=== PATIENT | female | born 1985 | race Caucasian/White ===

== ENCOUNTER 2016-09-19 05:17 | Emergency (ER) | payer BC ==
[~2016-09-19 05:17] MED LIST: BUSPAR5 M1 PO; EC-NAPROSYN500 MG; IMITREX PO; LORTAB 7.5-3251 EACH PO; NAPROSYN250 M1 PO; NO MEDICATIONS; PERCOCET5/325 PO; PRILOSEC20 MG PO; PROTONIX PO; ZOFRAN ODT4 MG PO; ZOFRAN PO
== END 2016-09-19 05:20 | disposition home or self-care (01) ==
LOC: SED 05:17
DX: J06.9 Acute upper respiratory infection, unspecified (principal); Z88.8 Allergy status to other drugs, medicaments and biological substances
CPT/HCPCS: 99282

== ENCOUNTER 2016-11-27 22:08 | Emergency (ER) | payer OTHER ==
[2016-11-27] MEDS ORDERED: IMITREX50 MG PO (22:14)
== END 2016-11-27 23:35 | disposition home or self-care (01) ==
LOC: SED 22:08
DX: J06.9 Acute upper respiratory infection, unspecified (principal); G43.909 Migraine, unspecified, not intractable, without status migrainosus; Z90.49 Acquired absence of other specified parts of digestive tract; Z88.8 Allergy status to other drugs, medicaments and biological substances; Z79.899 Other long term (current) drug therapy
CPT/HCPCS: 99282

== ENCOUNTER 2017-01-26 01:23 | Emergency (ER) | payer OTHER ==
[~2017-01-26 01:23] MED LIST changes: +IMITREX50 MG PO
== END 2017-01-26 02:03 | disposition home or self-care (01) ==
LOC: SED 01:23
DX: T21.11XA Burn of first degree of chest wall, initial encounter (principal); T21.14XA Burn of first degree of lower back, initial encounter; T31.0 Burns involving less than 10% of body surface; Z90.49 Acquired absence of other specified parts of digestive tract; Z90.89 Acquired absence of other organs; Z88.8 Allergy status to other drugs, medicaments and biological substances; X08.8XXD Exposure to other specified smoke, fire and flames, subsequent encounter
CPT/HCPCS: 99283

== ENCOUNTER 2017-02-01 00:57 | Emergency (ER) | payer OTHER | END 2017-02-01 01:34 | disposition home or self-care (01) | LOC: SED 00:57 | DX: L55.9 Sunburn, unspecified (principal); G57.12 Meralgia paresthetica, left lower limb | CPT/HCPCS: 99282 ==